=== PATIENT | female | born 1965 | race Caucasian/White ===

== ENCOUNTER 2017-05-25 17:34 | Observation (INO) ==
[2017-05-25] MEDS ORDERED: Ondansetron 4 MG/2 ML VIAL IVP ONE (18:28)
[2017-05-25] MEDS ORDERED: 0.9 % Sodium Chloride 1,000 ML IVC ONE (18:28)
[2017-05-25 18:44] LABS: Basophils % 0.4 %; Eosinophils # 0.1 K/mcL (0.0-0.6); Eosinophils % 1.3 %; Hematocrit 30.4 % (35.3-44.9); Hemoglobin 10.1 g/dL (11.5-15.4); Immature Granulocytes % 0.5 % (0-4); Lymphocytes # 2.3 K/mcL (0.6-4.6); Lymphocytes % 29.6 %; Mean Corpuscular HGB Conc 33.2 g/dL (31.6-35.5); Mean Corpuscular Hemoglobin 29.8 pg (28.0-33.3); Mean Corpuscular Volume 89.7 fL (83.0-100.0); Mean Platelet Volume 9.9 fL (9.4-12.4); Monocytes # 0.8 K/mcL (0.0-1.3); Monocytes % 9.8 %; Neutrophils # 4.6 K/mcL (1.6-8.9); Platelet Count 205 K/mcL (140-400); Red Blood Count 3.39 M/mcL (3.82-4.97); Red Cell Distribution Width 13.2 % (11.5-14.5); Segmented Neutrophils % 58.4 %
--- NOTE | 2017-05-25 18:47 | Emergency Department Note ---
Disposition Clinical Impression: Diverticulitis Disposition: Admitted As Inpatient Condition: Good Time of Disposition: 19:30 Abdominal Pain HPI - General Chief Complaint: ED Abdominal Pain Stated Complaint: sent to er by pcp Time Seen by Provider: 05/25/17 18:15 Source: patient Nursing Notes Reviewed: Yes Vital Signs Reviewed: Yes - History of Present Illness HPI Narrative: A week ago Miss Collado was diagnosed with diverticulitis. The pain that brought her in initially with this diagnosis is no better no worse. However she has had some diarrhea since the day after her visit. It is improving but she went about 6 times today and has abdominal cramps. She was placed on Cipro and Flagyl but estimates that she threw up about half of these doses. She saw her family doctor Sunday which is 2 days ago and those 2 medications were stopped and she was placed on Bactrim. She has a history of anaphylaxis with penicillin. The pain as described above is no better no worse but has persisted since that Bactrim was started. This medication has been giving her some stomach cramps as well. She last threw up about 4 hours ago. She is somewhat dizzy and lightheaded when she stands up. Urine frequency has decreased. She was directed to the emergency department by her family doctor. Pain Scale: 3 - Related Data Home Medications Medication Instructions Recorded Confirmed Cholecalciferol (Vitamin D3) 1,000 unit PO DAILY 12/29/14 05/25/17 [Vitamin D] Losartan Potassium [Cozaar] 75 mg PO DAILY 06/29/15 05/25/17 Aspirin Enteric Coated [Aspirin EC] 81 mg PO DAILY 03/28/17 05/25/17 Buspirone HCl [Buspar] 10 mg PO TID 03/28/17 05/25/17 Carvedilol 12.5 mg PO BID 03/28/17 05/25/17 Folic Acid 1 mg PO DAILY 03/28/17 05/25/17 Levothyroxine [Synthroid] 88 mcg PO 0630 03/28/17 05/25/17 Topiramate [Topamax] 50 mg PO QAM 03/28/17 05/25/17 Trazodone HCl 100 mg PO HS 03/28/17 05/25/17 Lansoprazole [Prevacid] 15 mg PO QAM 05/25/17 05/25/17 Previous Rx's Medication Instructions Recorded Rivaroxaban [Xarelto] 20 mg PO DAILY #30 tablet 03/29/17 Allergies Allergy/AdvReac Type Severity Reaction Status Date / Time lisinopril Allergy Anaphylaxis Verified 05/25/17 17:46 Penicillins Allergy Anaphylaxis Verified 05/25/17 17:46 Constitutional: Denies: fever, chills ENT ED: Denies: dysphagia Cardiovascular: Denies: chest pain Respiratory: Denies: dyspnea Gastrointestinal: Reports: abdominal pain, nausea, vomiting, diarrhea Genitourinary: Reports: as per HPI Musculoskeletal: Denies: myalgia Neurological: Denies: headache Endocrine: Reports: fatigue Abdominal Pain PMH - Past Medical History Medical history: Reports: cancer, GERD, hyperlipidemia, hypertension, kidney stones, thyroid disease Female Surgical History: Reports: breast surgery, , cholecystectomy, hysterectomy 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 Absent: scleral icterus - ENT ENT exam: normal oropharynx, mucous membranes moist - Neck Neck exam: Present: normal inspection. Absent: lymphadenopathy - Chest Chest inspection: Present: normal inspection, symmetric chest wall rise - Respiratory Respiratory exam: Present: normal lung sounds bilaterally. Absent: respiratory distress, wheezes, stridor - Cardiovascular Cardiovascular exam: Present: regular rate, normal rhythm, normal heart sounds - Abdominal Exam Abdominal exam: Present: soft, normal bowel sounds. Absent: distention, guarding, rebound, rigidity Abdominal tenderness: Present: LLQ, diffuse, mild, moderate (Moderate pain left lower quadrant otherwise diffusely mild pain to palpation) - Extremities Exam Extremities exam: Absent: normal capillary refill (3 seconds) - Neurological Exam Neurological exam: Present: alert - Psychiatric Psychiatric exam: Present: normal affect, normal mood - Skin Skin exam: Present: other (No tenting of the skin) Course Vital Signs Temperature 97.8 F 05/25/17 17:38 Pulse Rate 82 05/25/17 17:38 Respiratory Rate 16 05/25/17 17:38 Blood Pressure 128/83 05/25/17 17:38 O2 Sat by Pulse Oximetry 96 03/16/18 17:38 Temperature 98.3 F 05/25/17 20:01 Pulse Rate 82 05/25/17 17:38 Respiratory Rate 20 05/25/17 20:01 Blood Pressure 111/73 05/25/17 20:01 O2 Sat by Pulse Oximetry 96 05/25/17 17:38 Oxygen Delivery Oxygen Delivery Room Air Abdominal Pain - MDM Narrative Medical decision making narrative: Diverticulitis. Mild case. Clinically stable. Difficulty tolerating by mouth regimen this week now on a partial regimen of Bactrim secondary to significant penicillin reaction. She tolerated Invanz 1 g here in the emergency department along with IV Zofran and fluids. It would be prudent to hydrate her overnight if she is showing some signs of dehydration and increased creatinine. I spoke with the covering hospitalist here at [facility] and presented the case. He accepted admission. Ms. Collado is in agreement and is in stable condition awaiting transfer to the floor. We will hold any nonessential medications by mouth until her nausea and vomiting are well under control. - Medical Records Medical records reviewed: Yes I reviewed the patient's medical records. - Lab Data Lab results reviewed: Yes I reviewed the patient's lab results. Result diagrams: 05/25/17 18:41 05/25/17 18:41 Lab Results 05/25/17 05/25/17 05/25/17 Range/Units 18:41 18:41 18:41 WBC 7.9 (4.3-11.1) K/mcL RBC 3.39 L (3.82-4.97) M/mcL Hgb 10.1 L (11.5-15.4) g/dL Hct 30.4 L (35.3-44.9) % MCV 89.7 (83.0-100.0) fL MCH 29.8 (28.0-33.3) pg MCHC 33.2 (31.6-35.5) g/dL RDW 13.2 (11.5-14.5) % Plt Count 205 (140-400) K/mcL MPV 9.9 (9.4-12.4) fL Immature Gran % 0.5 (0-4) % Seg Neutrophils % 58.4 % Lymphocytes % 29.6 % Monocytes % 9.8 % Eosinophils % 1.3 % Basophils % 0.4 % Neutrophils # 4.6 (1.6-8.9) K/mcL Lymphocytes # 2.3 (0.6-4.6) K/mcL Monocytes # 0.8 (0.0-1.3) K/mcL Eosinophils # 0.1 (0.0-0.6) K/mcL Basophils # 0.0 (0.0-0.2) K/mcL Sodium 139 (136-145) mEq/L Potassium 4.1 (3.5-5.1) mEq/L Chloride 110 H (98-107) mEq/L Carbon Dioxide 22 L (23-29) mEq/L BUN 18 (6-20) mg/dL Creatinine 1.38 H (0.60-1.20) mg/dL Est GFR ( Amer) 49 L (> 60) Est GFR (Non-Af Amer) 40 L (> 60) BUN/Creatinine Ratio 13 (6-26) Glucose 90 (70-105) mg/dL Calculated Osmolality 289 (280-300) Calcium 8.6 (8.6-10.3) mg/dL Total Bilirubin 0.2 L (0.3-1.0) mg/dL AST 9 L (13-39) Units/L ALT 6 L (7-52) Units/L Alkaline Phosphatase 59 (34-104) Units/L Serum Total Protein 5.9 L (6.4-8.9) g/dL Albumin 3.1 L (3.5-5.7) g/dL Globulin 2.8 (2.4-3.5) g/dL Albumin/Globulin Ratio 1.1 (1.1-2.2) Amylase 32 (29-103) Units/L Lipase (11-82) Units/L Urine Color Yellow (Yellow) Urine Clarity Clear (Clear) Urine pH 6.5 (5.0-8.0) pH Units Ur Specific [place] 1.015 (1.010-1.025) Urine Protein Negative (Neg-Trace) mg/dL Urine Glucose (UA) Normal (Normal) mg/dL Urine Ketones Negative (Negative) mg/dL Urine Blood Trace-lysed H (Negative) Urine Nitrite Negative (Negative) Urine Bilirubin Negative (Negative) Urine Urobilinogen Normal (Normal) mg/dL Ur Leukocyte Esterase Negative (Negative) Urine Microscopic RBC 0-3 (0-3) per hpf Urine Microscopic WBC 0-3 (0-3) per hpf Ur Culture Indicated? NO (NO) 05/25/17 Range/Units 18:41 WBC (4.3-11.1) K/mcL RBC (3.82-4.97) M/mcL Hgb (11.5-15.4) g/dL Hct (35.3-44.9) % MCV (83.0-100.0) fL MCH (28.0-33.3) pg MCHC (31.6-35.5) g/dL RDW (11.5-14.5) % Plt Count (140-400) K/mcL MPV (9.4-12.4) fL Immature Gran % (0-4) % Seg Neutrophils % % Lymphocytes % % Monocytes % % Eosinophils % % Basophils % % Neutrophils # (1.6-8.9) K/mcL Lymphocytes # (0.6-4.6) K/mcL Monocytes # (0.0-1.3) K/mcL Eosinophils # (0.0-0.6) K/mcL Basophils # (0.0-0.2) K/mcL Sodium (136-145) mEq/L Potassium (3.5-5.1) mEq/L Chloride (98-107) mEq/L Carbon Dioxide (23-29) mEq/L BUN (6-20) mg/dL Creatinine (0.60-1.20) mg/dL Est GFR ( Amer) (> 60) Est GFR (Non-Af Amer) (> 60) BUN/Creatinine Ratio (6-26) Glucose (70-105) mg/dL Calculated Osmolality (280-300) Calcium (8.6-10.3) mg/dL Total Bilirubin (0.3-1.0) mg/dL AST (13-39) Units/L ALT (7-52) Units/L Alkaline Phosphatase (34-104) Units/L Serum Total Protein (6.4-8.9) g/dL Albumin (3.5-5.7) g/dL Globulin (2.4-3.5) g/dL Albumin/Globulin Ratio (1.1-2.2) Amylase (29-103) Units/L Lipase 33 (11-82) Units/L Urine Color (Yellow) Urine Clarity (Clear) Urine pH (5.0-8.0) pH Units Ur Specific [place] (1.010-1.025) Urine Protein (Neg-Trace) mg/dL Urine Glucose (UA) (Normal) mg/dL Urine Ketones (Negative) mg/dL Urine Blood (Negative) Urine Nitrite (Negative) Urine Bilirubin (Negative) Urine Urobilinogen (Normal) mg/dL Ur Leukocyte Esterase (Negative) Urine Microscopic RBC (0-3) per hpf Urine Microscopic WBC (0-3) per hpf Ur Culture Indicated? (NO) - Radiology Data Radiology results reviewed: Yes I reviewed the patient's radiology results.
[2017-05-25 18:57] LABS: Bilirubin,Urine Negative (Negative); Blood,Urine Trace-lysed (Negative); Clarity,Urine Clear (Clear); Color,Urine Yellow (Yellow); Glucose,Urine (UA) Normal (Normal); Ketones,Urine Negative (Negative); Leukocyte Esterase,Urine Negative (Negative); Nitrite,Urine Negative (Negative); PH,Urine 6.5 pH Units (5.0-8.0); Protein,Urine Negative (Neg-Trace); Specific Gravity,Urine 1.015 (1.010-1.025); Urobilinogen,Urine Normal (Normal)
[2017-05-25] MEDS ORDERED: Ertapenem 1,000 MG in 0.9 % Sodium Chloride Mini Bag 100 ML IVPB SCH (19:00)
[2017-05-25 19:06] LABS: RBC,Urine 0-3 per hpf (0-3); WBC,Urine 0-3 per hpf (0-3)
[2017-05-25 19:11] LABS: Albumin 3.1 g/dL (3.5-5.7); Albumin/Globulin Ratio 1.1 (1.1-2.2); Bilirubin,Total 0.2 mg/dL (0.3-1.0); Calcium 8.6 mg/dL (8.6-10.3); Globulin 2.8 g/dL (2.4-3.5); Potassium 4.1 mEq/L (3.5-5.1); Total Protein 5.9 g/dL (6.4-8.9)
[2017-05-25] MEDS ORDERED: Naloxone 0.4 MG/ML INJ IVP PRN (20:06)
[2017-05-25] MEDS ORDERED: traZODone 50 MG TABLET PO SCH (21:00)
[2017-05-25 21:20] LABS: INR 1.4; Prothrombin Time 15.1 Seconds (9.4-12.1)
[2017-05-25 21:22] LABS: Activated Partial Thrombo Time 30.5 Seconds (26.0-36.0)
[2017-05-25] MEDS ORDERED: Ondansetron 4 MG/2 ML VIAL IVP PRN (22:04)
[2017-05-25] MEDS: 0.9 % Sodium Chloride 1,000 ML IVC SCH (22:47)
[2017-05-25] MEDS: *HR* OxyCODONE Immed Rel 5 MG TABLET PO PRN (23:38)
[2017-05-26 05:51] LABS: Basophils % 0.4 %; Eosinophils # 0.2 K/mcL (0.0-0.6); Eosinophils % 2.2 %; Hematocrit 30.3 % (35.3-44.9); Hemoglobin 9.8 g/dL (11.5-15.4); Immature Granulocytes % 0.4 % (0-4); Lymphocytes # 2.6 K/mcL (0.6-4.6); Lymphocytes % 36.5 %; Mean Corpuscular HGB Conc 32.3 g/dL (31.6-35.5); Mean Corpuscular Hemoglobin 29.1 pg (28.0-33.3); Mean Corpuscular Volume 89.9 fL (83.0-100.0); Mean Platelet Volume 10.2 fL (9.4-12.4); Monocytes # 0.6 K/mcL (0.0-1.3); Monocytes % 7.7 %; Neutrophils # 3.8 K/mcL (1.6-8.9); Platelet Count 196 K/mcL (140-400); Red Blood Count 3.37 M/mcL (3.82-4.97); Segmented Neutrophils % 52.8 %
[2017-05-26 06:06] LABS: Calcium 8.4 mg/dL (8.6-10.3); Potassium 3.9 mEq/L (3.5-5.1)
[2017-05-26] MEDS: *HR* OxyCODONE Immed Rel 5 MG TABLET PO PRN (06:15)
[2017-05-26] MEDS: 0.9 % Sodium Chloride 1,000 ML IVC SCH (06:51)
[2017-05-26] MEDS ORDERED: *HR* Rivaroxaban 10 MG TABLET PO SCH (09:00)
[2017-05-26 12:17] VITALS: BP 138/64
--- NOTE | 2017-05-26 13:35 | Internal Med History&Physical ---
Date of Encounter: 05/26/17 Time of Encounter: 13:34 Assessment and Plan (1) Diverticulitis Status: Acute Clinically stable, to improved. She is able to keep food and fluids down without emesis. We will discontinue her IV antibiotics and fluids and advised that she be discharged to a soft diet, continue to use Zofran at home along with the Phenergan as needed. Advised her to follow-up with her primary care physician and to return, should she develop emesis to the point that she cannot keep fluids down. She will continue oral Bactrim, for now. She verbalizes understanding. (2) Pulmonary embolism Status: Suspected Recent and therefore will continue on 0 toe as per previous plans. Qualifiers: Pulmonary embolism type: other Chronicity: acute Acute cor pulmonale presence: without acute cor pulmonale Qualified Code(s): I26.99 - Other pulmonary embolism without acute cor pulmonale (3) DVT prophylaxis Status: Acute (4) DVT (deep venous thrombosis) Status: Acute Right lower extremity. Qualifiers: DVT location: lower extremity Affected thrombotic vein of extremity: femoral Chronicity: acute Laterality: left Qualified Code(s): I82.412 - Acute embolism and thrombosis of left femoral vein (5) Obstructive sleep apnea Status: Acute Uses CPAP at home regularly. (6) Essential hypertension Status: Acute Clinically controlled. (7) Nephrolithiasis Status: Acute On 6 occasions, per patient. (8) GERD (gastroesophageal reflux disease) Status: Acute We have advised her to continue her lansoprazole 15 mg by mouth daily Qualifiers: Esophagitis presence: esophagitis presence not specified Qualified Code(s) : K21.9 - Gastro-esophageal reflux disease without esophagitis (9) Breast cancer, right breast Status: Acute Without known evidence of recurrence and followed appropriately per history. Qualifiers: Breast location: unspecified site of breast Estrogen receptor status: unspecified Patient sex: female Qualified Code(s): C50.911 - Malignant neoplasm of unspecified site of right female breast (10) Hypothyroid Status: Chronic Will continue on supplementation and affirmed her plan to have evaluation to see about follow-up size of nodules. Her neck is obese and I was unable to palpate nodules, currently. This may be limited as she was examined in bed instead of upright in chair. Qualifiers: Hypothyroidism type: unspecified Qualified Code(s): E03.9 - Hypothyroidism , unspecified (11) Bipolar 1 disorder, manic, moderate Status: Acute As mentioned above, she separates this from anxiety disorder. Apparently well controlled with current medications, per patient. (12) Chronic kidney disease (CKD) stage G3a/A2, moderately decreased glomerular filtration rate (GFR) between 45-59 mL/min/1.73 square meter and albuminuria creatinine ratio between 30-299 mg/g Status: Acute Current labs look better than this. (13) Chronic kidney disease (CKD) stage G3a/A1, moderately decreased glomerular filtration rate (GFR) between 45-59 mL/min/1.73 square meter and albuminuria creatinine ratio less than 30 mg/g Status: Acute Internal Medicine - H&P: HPI Admitted From: Home Plans for Post Hospital Care: Home History of present illness: Ms. Collado is a 52 year old female who has presented to [facility] emergency department about a week ago with left flank and left lower quadrant pain. Because of her past history of kidney stones, she was felt to have a recurrent kidney stone tone and a CT scan failed to reveal same. She was found to have changes consistent with diverticulitis. She was discharged on Cipro and Flagyl and sent home. However, she continued to have abdominal pain, nausea and vomiting, diarrhea times per day with these medications. She saw her family physician, Dr. Shayy Calhoun, who discontinues those medications, gave her Phenergan and Bactrim, and told her to present to the ED, again, should her nausea and vomiting not resolved. Yesterday, she felt sweaty, had a fever, presented to the [facility] ED with persistent nausea and vomiting and diarrhea. For this reason, she was treated with IV hydration and given IV antibiotics and anti-emetics. Overnight, she improved and has had less nausea, no emesis, only 2 bowel movements which were somewhat loose but not diarrhea as before. She denies melena or hematochezia or hematemesis. There has been no dyspnea, sore throat and while she had some lightheadedness and dizziness with not being able to keep in fluids, this has improved. She has a history of right breast cancer in 2010 and underwent lumpectomy and radiation therapy. She has no known recurrence and had a recent negative mammogram. She is status post cholecystectomy, hysterectomy, incidental appendectomy, and bilateral carpal tunnel release. In March of this year, she had a right DVT with pulmonary embolus. She is treated for this with prophylactic cerebral toe. She knows of no complications , otherwise and has no recent bleeding issues. She has long-standing hypertension for which she takes multiple medications as noted including losartan 75 mg daily and Coreg 12.5 mg twice a day She has GERD for which she takes lansoprazole 15 mg daily. She has bipolar disorder for which she takes Topamax 50 mg daily. She also takes trazodone 100 mg at bedtime for anxiety which she separates from the bipolar disorder. She is hypothyroid on levothyroxine 88 g daily. He also has thyroid nodules and is due for a scan (? Ultrasound) in the near future. She is allergic to penicillin and aspirin. She has stage III chronic kidney disease attributed to lithium therapy. She wears glasses. Initial review of systems is otherwise negative. Past Med Surg Social Fam HX - Past Medical History Medical history: cancer, DVT, GERD, hyperlipidemia, hypertension, kidney stones , malignancy, migraine, pulmonary embolus, renal disease, thyroid disease Psychiatric history: anxiety, bipolar, depression - Past Surgical History Surgical History: breast surgery, cholecystectomy, hysterectomy, other - Social History Smoking Status: Former smoker Smokeless Tobacco Status: No Alcohol use: none Drug use: none - Family History Grandmother Hx Family Cardiac Disorders: Yes Hx Family Cancer: Yes Father Living Status: Hx Family Cancer: Yes Mother Living Status: Still Living Hx Family Cardiac Disorders: Yes Internal Medicine - H&P: Meds Cholecalciferol (Vitamin D3) [Vitamin D] 1,000 unit PO DAILY 12/29/14 [History] Losartan Potassium [Cozaar] 75 mg PO DAILY 06/29/15 [History] Aspirin Enteric Coated [Aspirin EC] 81 mg PO DAILY 03/28/17 [History] Buspirone HCl [Buspar] 10 mg PO TID 03/28/17 [History] Carvedilol 12.5 mg PO BID 03/28/17 [History] Folic Acid 1 mg PO DAILY 03/28/17 [History] Levothyroxine [Synthroid] 88 mcg PO 0630 03/28/17 [History] Topiramate [Topamax] 50 mg PO QAM 03/28/17 [History] Trazodone HCl 100 mg PO HS 03/28/17 [History] Rivaroxaban [Xarelto] 20 mg PO DAILY #30 tablet 03/29/17 [Rx] Lansoprazole [Prevacid] 15 mg PO QAM 05/25/17 [History] 3 Allergy/AdvReac Type Severity Reaction Status Date / Time lisinopril Allergy Anaphylaxis Verified 05/25/17 17:46 Penicillins Allergy Anaphylaxis Verified 05/25/17 17:46 All Systems PM: A 10-system review of systems was performed and is negative for pertinent findings except as documented above in the HPI. - Constitutional Vitals: Temp Pulse Resp BP Pulse Ox 98.1 F 100 14 138/64 96 05/26/17 12:00 05/26/17 12:00 05/26/17 12:00 05/26/17 12:00 05/26/17 08:03 Exam: Examinatioin: (Except as mentioned above): General: In no apparent distress, alert and oriented 3. Head: Atraumatic and normocephalic. Eyes: Extraocular muscles are intact, pupils equal round and reactive to light and accommodation. Sclerae anicteric. Ears: External ears are normal to inspection and hearing is grossly normal. Nose: Patent without lesion noted. Mouth: No intraoral lesions seen. Dentition is unremarkable. Neck: Supple with trachea midline. There is no thyromegaly or adenopathy and carotids are 2+ without bruit heard. Respiratory: No use of accessory muscles. Lungs are clear throughout. Normal airflow. Cardiovascular: Regular rate and rhythm without murmur appreciated. Abdomen: Bowel sounds are normal. She has no mass or hepatosplenomegaly but she has bilateral lower quadrant tenderness, worse at the left lower quadrant. This is mild in degree, subjectively, and not associated with guarding or rebound. There is no costovertebral angle tenderness, at either side. Obese and therefore difficult to palpate deeply. Extremities: No cyanosis clubbing or edema. Neurological: A and O 3. Cranial nerves II through XII are intact. No focal deficits and no abnormal movements or postures. Skin: Warm and non-diaphoretic with no lesions noted. Breasts, pelvic and rectal: Not examined. Internal Med - H&P Results - Labs CBC & Chem 7: 05/26/17 05:00 05/26/17 05:00 Labs: Short CBC 05/26/17 Range/Units 05:00 WBC 7.2 (4.3-11.1) K/mcL Hgb 9.8 L (11.5-15.4) g/dL Hct 30.3 L (35.3-44.9) % Plt Count 196 (140-400) K/mcL Neutrophils # 3.8 (1.6-8.9) K/mcL BMP 05/26/17 05:00 Sodium 139 Potassium 3.9 Chloride 112 H Carbon Dioxide 20 L BUN 15 Creatinine 1.19 Glucose 88 Calcium 8.4 L - VTE Reasons for not Prescribing Prophylaxis: Not indicated-Anticoagulated or INR therapeutic
--- NOTE | 2017-05-26 14:56 | Discharge Summary ---
Date of Encounter: 05/26/17 Time of Encounter: 14:54 - Discharge Diagnosis (1) Diverticulitis Priority: Primary Status: Acute (2) Pulmonary embolism Priority: Secondary Status: Suspected Qualifiers: Pulmonary embolism type: other Chronicity: acute Acute cor pulmonale presence: without acute cor pulmonale Qualified Code(s): I26.99 - Other pulmonary embolism without acute cor pulmonale (3) Breast cancer, right breast Priority: Secondary Status: Acute Comments: No known recurrence in recent mammogram negative. Qualifiers: Breast location: unspecified site of breast Estrogen receptor status: unspecified Patient sex: female Qualified Code(s): C50.911 - Malignant neoplasm of unspecified site of right female breast (4) Hypothyroid Priority: Secondary Status: Chronic Qualifiers: Hypothyroidism type: unspecified Qualified Code(s): E03.9 - Hypothyroidism , unspecified (5) Bipolar 1 disorder, manic, moderate Priority: Secondary Status: Acute (6) Obstructive sleep apnea Priority: Secondary Status: Acute (7) Essential hypertension Priority: Secondary Status: Acute (8) Nephrolithiasis Priority: Secondary Status: Acute Comments: By history (9) GERD (gastroesophageal reflux disease) Priority: Secondary Status: Acute Qualifiers: Esophagitis presence: esophagitis presence not specified Qualified Code(s) : K21.9 - Gastro-esophageal reflux disease without esophagitis Hospital course: Ms. Collado is a 52 year old female who presented with recurrent left lower quadrant and flank pain, felt to be diverticulitis. She had nausea and was unable to keep fluids down. For this reason, she was admitted on an observation status by the emergency department physician. She tolerated rehydration and improved overnight so that her nausea was minimal. She had great decrease in her diarrhea. She was provided with Zofran and instructed to use this in combination, as needed, with Phenergan as before. She is instructed to follow-up with her primary care physician, Dr. Sasha Calhoun.. Discharge discussed with: patient - Time Spent with Patient Total time spent providing and/or coordinating discharge services: Greater than 30 minutes - Discharge Medications Home Medications: Cholecalciferol (Vitamin D3) [Vitamin D] 1,000 unit PO DAILY 12/29/14 [History] Losartan Potassium [Cozaar] 75 mg PO DAILY 06/29/15 [History] Aspirin Enteric Coated [Aspirin EC] 81 mg PO DAILY 03/28/17 [History] Buspirone HCl [Buspar] 10 mg PO TID 03/28/17 [History] Carvedilol 12.5 mg PO BID 03/28/17 [History] Folic Acid 1 mg PO DAILY 03/28/17 [History] Levothyroxine [Synthroid] 88 mcg PO 0630 03/28/17 [History] Topiramate [Topamax] 50 mg PO QAM 03/28/17 [History] Trazodone HCl 100 mg PO HS 03/28/17 [History] Rivaroxaban [Xarelto] 20 mg PO DAILY #30 tablet 03/29/17 [Rx] Lansoprazole [Prevacid] 15 mg PO QAM 05/25/17 [History] Allergies/Adverse Reactions: 3 Allergy/AdvReac Type Severity Reaction Status Date / Time lisinopril Allergy Anaphylaxis Verified 05/25/17 17:46 Penicillins Allergy Anaphylaxis Verified 05/25/17 17:46 Date of admission: 05/25/17 19:34 Primary care physician: Sasha Calhoun CNP Discharging clinician: Keenan Garcia Anticipated date of discharge: 05/26/17 - Constitutional Vitals: Temp Pulse Resp BP Pulse Ox 98.1 F 100 14 138/64 96 05/26/17 12:00 05/26/17 12:00 05/26/17 12:00 05/26/17 12:00 05/26/17 08:03 Exam: See history and physical this date. - Patient Status Disposition: Home, Self-Care Condition: Fair Functional capacity at discharge: independent ambulation Overall status at discharge: patient is not back to baseline - Discharge Instructions Follow Up With: Sasha Calhoun CNP [Primary Care Provider] - - VTE Reasons for not Prescribing Prophylaxis: Not indicated-Anticoagulated or INR therapeutic
[2017-05-26] MEDS ORDERED: Ertapenem 1,000 MG in 0.9 % Sodium Chloride Mini Bag 100 ML IVPB SCH (18:00)
== END 2017-05-26 15:53 | disposition home or self-care (01) ==
LOC: EMEROOGRE 17:34 → INPGRE 17:34

== ENCOUNTER 2020-12-12 08:28 | Observation (INO) ==
[2020-12-12 08:56] LABS: Basophils % 0.5 %; Eosinophils # 0.1 K/mcL (0.0-0.6); Eosinophils % 1.7 %; Hematocrit 26.3 % (35.3-44.9); Hemoglobin 8.6 g/dL (11.5-15.4); Immature Granulocytes % 0.5 % (0-4); Lymphocytes # 0.6 K/mcL (0.6-4.6); Mean Corpuscular HGB Conc 32.7 g/dL (31.6-35.5); Mean Corpuscular Hemoglobin 33.3 pg (28.0-33.3); Mean Corpuscular Volume 101.9 fL (83.0-100.0); Monocytes # 0.2 K/mcL (0.0-1.3); Monocytes % 3.7 %; Platelet Count 134 K/mcL (140-400); Red Blood Count 2.58 M/mcL (3.82-4.97); Red Cell Distribution Width 12.8 % (11.5-14.5); Segmented Neutrophils % 83.6 %
[2020-12-12 09:01] LABS: Anisocytosis 1+ (Not Present); Platelet Estimate Normal (Normal); Poikilocytosis 1+ (Not Present)
[2020-12-12 09:02] LABS: INR 1.8; Prothrombin Time 19.8 Seconds (9.4-12.1)
[2020-12-12 09:05] LABS: Activated Partial Thrombo Time 36.5 Seconds (26.0-36.0)
[2020-12-12 09:14] LABS: Alanine Aminotransferase 6 Units/L (7-52); Albumin 3.2 g/dL (3.5-5.7); Albumin/Globulin Ratio 1.3 (1.1-2.2); Alkaline Phosphatase 55 Units/L (34-104); Aspartate Amino Transferase 10 Units/L (13-39); BUN/Creatinine Ratio 12 (6-26); Bilirubin,Total 0.4 mg/dL (0.3-1.0); Blood Urea Nitrogen 17 mg/dL (6-20); Calcium 7.8 mg/dL (8.6-10.3); Carbon Dioxide 23 mEq/L (23-29); Chloride 108 mEq/L (98-107); Ethanol < 10 mg/dL (Less than 10); Globulin 2.5 g/dL (2.4-3.5); Glucose 121 mg/dL (70-105); Magnesium 2.1 mg/dL (1.6-2.6); Osmolality,Calculated 291 (280-300); Potassium 3.5 mEq/L (3.5-5.1); Sodium 139 mEq/L (136-145); Total Protein 5.7 g/dL (6.4-8.9); eGFR For African Americans 47 (> 60); eGFR For Non-African Americans 39 (> 60)
[2020-12-12 09:26] LABS: Thyroid Stimulating Hormone 0.564 mcIU/mL (0.340-5.600)
[2020-12-12] MEDS ORDERED: 0.9 % Sodium Chloride 1,000 ML IVC ONE (10:01)
[2020-12-12 10:10] LABS: ABG Base Excess -3 mEq/L (-2 to 3); ABG HCO3 22 mEq/L (21-27); ABG Oxygen Saturation 97 % (95-98); ABG PCO2 42 mmHg (35-45); ABG PH 7.33 pH Units (7.32-7.45); ABG PO2 95 mmHg (85-104); ABG TCO2 24 mEq/L (20-26)
[2020-12-12 12:17] LABS: Bilirubin,Urine Negative (Negative); Blood,Urine Trace-intact (Negative); Clarity,Urine Clear (Clear); Color,Urine Yellow (Yellow); Glucose,Urine (UA) Normal (Normal); Ketones,Urine Negative (Negative); Leukocyte Esterase,Urine Negative (Negative); Nitrite,Urine Negative (Negative); PH,Urine 5.5 pH Units (5.0-8.0); Protein,Urine 30 mg/dL (Neg-Trace); Specific Gravity,Urine 1.025 (1.010-1.025); Urobilinogen,Urine Normal (Normal)
[2020-12-12 12:20] LABS: RBC,Urine 0-3 per hpf (0-3); WBC,Urine 0-3 per hpf (0-3)
[2020-12-12 12:46] LABS: Amphetamine Screen,Urine Negative ng/mL (Cutoff=1000); Barbiturate Screen,Urine Negative ng/mL (Cutoff=200); Benzodiazepines Screen,Urine Negative ng/mL (Cutoff=200); Cannabinoid Screen,Urine Negative ng/mL (Cutoff = 50); Cocaine Screen,Urine Negative ng/mL (Cutoff= 300); Opiate Screen,Urine Positive ng/mL (Cutoff=300); Phencyclidine Screen,Urine Negative ng/mL (Cutoff=25)
[2020-12-12] MEDS ORDERED: Ondansetron ODT 4 MG TAB.RAPDIS SL PRN (14:15)
[2020-12-12] MEDS ORDERED: Rizatriptan Benzoate [Rizatriptan] 10 MG Tab.Rapdis PO PRN (14:28)
[2020-12-12] MEDS ORDERED: *HR* OxyCODONE Immed Rel 15 MG TABLET PO PRN (15:04)
[2020-12-12] MEDS: Topiramate 25 MG TABLET PO SCH (21:07)
[2020-12-13] MEDS: Topiramate 25 MG TABLET PO SCH (07:52)
[2020-12-13] MEDS ORDERED: Tiotropium 10 INH DOSE IH SCH (09:00)
[2020-12-13] MEDS ORDERED: polyethylene glycoL 3350 17 GM POWD.PACK PO SCH (09:00)
[2020-12-13] MEDS ORDERED: *HR* Rivaroxaban 10 MG TABLET PO SCH (09:00)
[2020-12-13] MEDS ORDERED: Letrozole 2.5 MG TABLET PO SCH (09:00)
[2020-12-13] MEDS ORDERED: Aspirin Enteric Coated 81 MG Tablet PO SCH (09:00)
[2020-12-13] MEDS ORDERED: PALBOCICLIB 125 MG PO SCH (09:00)
[2020-12-13 11:31] LABS: Basophils % 0.4 %; Eosinophils # 0.1 K/mcL (0.0-0.6); Eosinophils % 2.8 %; Hematocrit 25.3 % (35.3-44.9); Hemoglobin 8.4 g/dL (11.5-15.4); Immature Granulocytes % 0.6 % (0-4); Lymphocytes # 0.6 K/mcL (0.6-4.6); Lymphocytes % 12.5 %; Mean Corpuscular HGB Conc 33.2 g/dL (31.6-35.5); Mean Corpuscular Hemoglobin 33.2 pg (28.0-33.3); Mean Platelet Volume 9.4 fL (9.4-12.4); Monocytes # 0.2 K/mcL (0.0-1.3); Monocytes % 4.2 %; Platelet Count 144 K/mcL (140-400); Red Blood Count 2.53 M/mcL (3.82-4.97); Red Cell Distribution Width 12.8 % (11.5-14.5); Segmented Neutrophils % 79.5 %
[2020-12-13 11:44] LABS: Anisocytosis 1+ (Not Present); Platelet Estimate Normal (Normal); Poikilocytosis 1+ (Not Present)
[2020-12-13 11:51] LABS: BUN/Creatinine Ratio 12 (6-26); Blood Urea Nitrogen 12 mg/dL (6-20); Calcium 7.9 mg/dL (8.6-10.3); Carbon Dioxide 20 mEq/L (23-29); Chloride 115 mEq/L (98-107); Glucose 95 mg/dL (70-105); Osmolality,Calculated 292 (280-300); Potassium 3.7 mEq/L (3.5-5.1); Sodium 141 mEq/L (136-145); eGFR For African Americans > 60 (> 60); eGFR For Non-African Americans 57 (> 60)
[2020-12-13 12:11] VITALS: BP 137/76; PULSE 79; RESP 16; TEMP 98.2; O2SAT 95
== END 2020-12-13 16:31 | disposition home or self-care (01) ==
LOC: EMEROOGRE 08:28 → INPGRE 08:28
PROVIDERS: ADMIT Family Medicine; ATTEND Family Medicine

== ENCOUNTER 2021-02-02 11:37 | Inpatient (IN) ==
[2021-02-02] MEDS ORDERED: *HR* FentaNYL (PF) 100 MCG/2 ML VIAL IVP ONE ×2 (12:09→15:00)
[2021-02-02 12:44] LABS: Basophils % 0.7 %; Eosinophils % 0.3 %; Hematocrit 25.4 % (35.3-44.9); Hemoglobin 8.5 g/dL (11.5-15.4); Immature Granulocytes % 0.8 % (0-4); Lymphocytes # 0.9 K/mcL (0.6-4.6); Lymphocytes % 15.6 %; Mean Corpuscular HGB Conc 33.5 g/dL (31.6-35.5); Mean Corpuscular Hemoglobin 32.7 pg (28.0-33.3); Mean Corpuscular Volume 97.7 fL (83.0-100.0); Mean Platelet Volume 9.4 fL (9.4-12.4); Monocytes # 0.1 K/mcL (0.0-1.3); Monocytes % 0.8 %; Neutrophils # 4.8 K/mcL (1.6-8.9); Platelet Count 171 K/mcL (140-400); Red Cell Distribution Width 14.5 % (11.5-14.5); Segmented Neutrophils % 81.8 %; White Blood Count 5.9 K/mcL (4.3-11.1)
[2021-02-02 12:52] LABS: INR 3.3; Prothrombin Time 36.4 Seconds (9.4-12.1)
[2021-02-02 12:55] LABS: Activated Partial Thrombo Time 36.3 Seconds (26.0-36.0)
[2021-02-02 12:57] LABS: VBG HCO3 24 mEq/L (21-27); VBG PCO2 27 mmHg (41-51); VBG PH 7.55 pH Units (7.32-7.42); VBG PO2 25 mmHg (25-50)
[2021-02-02 12:58] LABS: Alanine Aminotransferase 8 Units/L (7-52); Albumin 3.5 g/dL (3.5-5.7); Albumin/Globulin Ratio 1.1 (1.1-2.2); Alkaline Phosphatase 82 Units/L (34-104); Aspartate Amino Transferase 15 Units/L (13-39); BUN/Creatinine Ratio 13 (6-26); Bilirubin,Direct 0.2 mg/dL (0.0-0.2); Bilirubin,Indirect 0.5 mg/dL (0.0-1.0); Bilirubin,Total 0.7 mg/dL (0.3-1.0); Blood Urea Nitrogen 15 mg/dL (6-20); Calcium 8.2 mg/dL (8.6-10.3); Carbon Dioxide 25 mEq/L (23-29); Chloride 102 mEq/L (98-107); Globulin 3.1 g/dL (2.4-3.5); Glucose 96 mg/dL (70-105); Osmolality,Calculated 289 (280-300); Potassium 2.7 mEq/L (3.5-5.1); Sodium 139 mEq/L (136-145); Total Protein 6.6 g/dL (6.4-8.9); eGFR For African Americans 58 (> 60); eGFR For Non-African Americans 48 (> 60)
[2021-02-02] MEDS ORDERED: Potassium Effervescent 25 MEQ TABLET.EFF PO ONE (12:59)
[2021-02-02] MEDS ORDERED: Isovue-370 500 ML BOTTLE IVP ONE (13:00)
[2021-02-02] MEDS ORDERED: 0.9 % Sodium Chloride 1,000 ML IVC ONE (13:00)
[2021-02-02 13:01] LABS: Troponin I < 0.03 ng/mL (< 0.04)
[2021-02-02] MEDS ORDERED: levoFLOXacin 750 MG/150 ML 750 MG/150 ML BAG IVPB ONE (15:55)
[2021-02-02 16:39] LABS: VBG HCO3 23 mEq/L (21-27); VBG PCO2 31 mmHg (41-51); VBG PH 7.48 pH Units (7.32-7.42); VBG PO2 32 mmHg (25-50)
[2021-02-02] MEDS ORDERED: Naloxone 0.4 MG/ML INJ IVP PRN (18:20)
[2021-02-02] MEDS ORDERED: *HR* HYDROcodone/Acet 5/325 mg TABLET PO PRN (18:20)
[2021-02-02] MEDS ORDERED: Furosemide 40 MG TABLET PO PRN (18:23)
[2021-02-02] MEDS: Ipratropium/Albuterol Neb 3 ML IH SCH (20:00)
[2021-02-02] MEDS ORDERED: Rizatriptan Benzoate [Rizatriptan] 10 MG PO PRN (22:00)
[2021-02-02] MEDS: levETIRAcetam 250 MG TABLET PO SCH (22:42)
[2021-02-02] MEDS: lamoTRIgine 100 MG TABLET PO SCH (22:43)
[2021-02-02] MEDS: Topiramate 25 MG TABLET PO SCH (22:43)
[2021-02-02] MEDS: Vitamin E 200 UNIT (90MG) CAPSULE PO SCH (22:43)
[2021-02-02] MEDS: *HR* OxyCODONE Immed Rel 15 MG TABLET PO SCH (22:44)
[2021-02-02] MEDS: traZODone 50 MG TABLET PO SCH (22:44)
[2021-02-02 23:24] LABS: Bilirubin,Urine Negative (Negative); Blood,Urine Negative (Negative); Clarity,Urine Clear (Clear); Color,Urine Yellow (Yellow); Glucose,Urine (UA) Normal (Normal); Ketones,Urine Negative (Negative); Leukocyte Esterase,Urine Negative (Negative); Nitrite,Urine Negative (Negative); Protein,Urine Negative (Neg-Trace); Urobilinogen,Urine Normal (Normal)
[2021-02-03] MEDS: Ipratropium/Albuterol Neb 3 ML IH SCH ×7 (00:20→23:52)
[2021-02-03 01:45] LABS: Adenovirus Not Detected (Not Detect); Bordetella Pertussis Not Detected (Not Detect); Chlamydophila pneumoniae Not Detected (Not Detect); Coronavirus 229E Not Detected (Not Detect); Coronavirus HKU1 Not Detected (Not Detect); Coronavirus NL63 Not Detected (Not Detect); Coronavirus OC43 DETECTED (Not Detect); Human Metapneumovirus DETECTED (Not Detect); Human Rhinovirus/Enterovirus Not Detected (Not Detect); Influenza A Subtype 2009 H1 Not Detected (Not Detect); Influenza B Not Detected (Not Detect); Mycoplasma pneumoniae Not Detected (Not Detect); Parainfluenza Virus 1 Not Detected (Not Detect); Parainfluenza Virus 2 Not Detected (Not Detect); Parainfluenza Virus 3 Not Detected (Not Detect); Parainfluenza Virus 4 Not Detected (Not Detect); Respiratory Syncytial Virus Not Detected (Not Detect); SARS-CoV-2 Not Detected (Not Detect)
[2021-02-03] MEDS: *HR* OxyCODONE Immed Rel 15 MG TABLET PO SCH ×4 (06:00→21:53)
[2021-02-03 06:04] LABS: Hematocrit 22.5 % (35.3-44.9); Hemoglobin 7.2 g/dL (11.5-15.4); Mean Corpuscular Hemoglobin 32.4 pg (28.0-33.3); Mean Corpuscular Volume 101.4 fL (83.0-100.0); Mean Platelet Volume 9.4 fL (9.4-12.4); Platelet Count 120 K/mcL (140-400); Red Blood Count 2.22 M/mcL (3.82-4.97); Red Cell Distribution Width 14.7 % (11.5-14.5); White Blood Count 3.7 K/mcL (4.3-11.1)
[2021-02-03 06:43] LABS: Alanine Aminotransferase 6 Units/L (7-52); Albumin/Globulin Ratio 1.3 (1.1-2.2); Alkaline Phosphatase 73 Units/L (34-104); Aspartate Amino Transferase 14 Units/L (13-39); BUN/Creatinine Ratio 10 (6-26); Bilirubin,Total 0.5 mg/dL (0.3-1.0); Blood Urea Nitrogen 11 mg/dL (6-20); Calcium 7.5 mg/dL (8.6-10.3); Carbon Dioxide 26 mEq/L (23-29); Chloride 107 mEq/L (98-107); Globulin 2.4 g/dL (2.4-3.5); Glucose 97 mg/dL (70-105); Magnesium 1.9 mg/dL (1.6-2.6); Osmolality,Calculated 283 (280-300); Phosphorous 2.3 mg/dL (2.7-4.5); Potassium 3.4 mEq/L (3.5-5.1); Sodium 137 mEq/L (136-145); Total Protein 5.4 g/dL (6.4-8.9); eGFR For African Americans > 60 (> 60); eGFR For Non-African Americans 52 (> 60)
[2021-02-03] MEDS: Topiramate 25 MG TABLET PO SCH ×2 (08:12→21:54)
[2021-02-03] MEDS: Acetaminophen 325 MG TABLET PO PRN (08:12)
[2021-02-03] MEDS: Vitamin E 200 UNIT (90MG) CAPSULE PO SCH ×2 (08:12→21:53)
[2021-02-03] MEDS: levETIRAcetam 250 MG TABLET PO SCH ×2 (08:12→21:54)
[2021-02-03] MEDS: Famotidine 20 MG TABLET PO SCH ×2 (08:13→15:49)
[2021-02-03] MEDS: polyethylene glycoL 3350 17 GM POWD.PACK PO SCH (08:14)
[2021-02-03] MEDS: PALBOCICLIB 125 MG PO SCH (08:15)
[2021-02-03] MEDS: Loratadine 10 MG TABLET PO SCH (08:22)
[2021-02-03] MEDS: Aspirin Enteric Coated 81 MG Tablet PO SCH (08:22)
[2021-02-03] MEDS: Cholecalciferol (D-3) 1,000 UNIT (25MCG) TABLET PO SCH (08:22)
[2021-02-03] MEDS: lamoTRIgine 100 MG TABLET PO SCH ×2 (08:22→21:54)
[2021-02-03] MEDS: *HR* Rivaroxaban 10 MG TABLET PO SCH (08:22)
[2021-02-03] MEDS: Letrozole 2.5 MG TABLET PO SCH (08:22)
[2021-02-03] MEDS: SUMAtriptan succinate 25 MG TABLET PO SCH (08:22)
[2021-02-03] MEDS ORDERED: Tiotropium 10 INH DOSE IH SCH (09:00)
[2021-02-03] MEDS: Benzonatate 100 MG CAPSULE PO PRN (15:49)
[2021-02-03] MEDS: levoFLOXacin 750 MG/150 ML 750 MG/150 ML BAG IVPB SCH (15:49)
[2021-02-03] MEDS: Ondansetron 4 MG/2 ML VIAL IVP PRN (15:57)
[2021-02-03] MEDS: traZODone 50 MG TABLET PO SCH (21:54)
[2021-02-04] MEDS: Ipratropium/Albuterol Neb 3 ML IH SCH ×5 (04:17→20:19)
[2021-02-04] MEDS: *HR* OxyCODONE Immed Rel 15 MG TABLET PO SCH ×3 (05:23→16:28)
[2021-02-04] MEDS: Vitamin E 200 UNIT (90MG) CAPSULE PO SCH ×2 (07:32→20:47)
[2021-02-04] MEDS: Acetaminophen 325 MG TABLET PO PRN (07:32)
[2021-02-04] MEDS: Cholecalciferol (D-3) 1,000 UNIT (25MCG) TABLET PO SCH (07:33)
[2021-02-04] MEDS: Letrozole 2.5 MG TABLET PO SCH (07:33)
[2021-02-04] MEDS: Topiramate 25 MG TABLET PO SCH ×2 (07:33→20:48)
[2021-02-04] MEDS: Benzonatate 100 MG CAPSULE PO PRN (07:33)
[2021-02-04] MEDS: Famotidine 20 MG TABLET PO SCH ×2 (07:34→16:28)
[2021-02-04] MEDS: levETIRAcetam 250 MG TABLET PO SCH ×2 (07:34→20:47)
[2021-02-04] MEDS: SUMAtriptan succinate 25 MG TABLET PO SCH (07:34)
[2021-02-04] MEDS: Aspirin Enteric Coated 81 MG Tablet PO SCH (07:34)
[2021-02-04] MEDS: Loratadine 10 MG TABLET PO SCH (07:34)
[2021-02-04] MEDS: *HR* Rivaroxaban 10 MG TABLET PO SCH (07:34)
[2021-02-04] MEDS: lamoTRIgine 100 MG TABLET PO SCH ×2 (07:35→20:49)
[2021-02-04] MEDS: PALBOCICLIB 125 MG PO SCH (07:37)
[2021-02-04] MEDS: polyethylene glycoL 3350 17 GM POWD.PACK PO SCH (07:37)
[2021-02-04 08:26] LABS: Hematocrit 24.2 % (35.3-44.9); Hemoglobin 7.6 g/dL (11.5-15.4); Mean Corpuscular HGB Conc 31.4 g/dL (31.6-35.5); Mean Corpuscular Hemoglobin 32.6 pg (28.0-33.3); Mean Corpuscular Volume 103.9 fL (83.0-100.0); Platelet Count 101 K/mcL (140-400); Red Blood Count 2.33 M/mcL (3.82-4.97); White Blood Count 2.6 K/mcL (4.3-11.1)
[2021-02-04 08:44] LABS: Calcium 8.1 mg/dL (8.6-10.3); Magnesium 1.9 mg/dL (1.6-2.6); Potassium 3.9 mEq/L (3.5-5.1)
[2021-02-04] MEDS: levoFLOXacin 750 MG/150 ML 750 MG/150 ML BAG IVPB SCH (16:28)
[2021-02-04] MEDS: Benzonatate 100 MG CAPSULE PO SCH (20:47)
[2021-02-04] MEDS: traZODone 50 MG TABLET PO SCH (20:48)
[2021-02-05] MEDS: *HR* OxyCODONE Immed Rel 15 MG TABLET PO SCH ×5 (00:08→20:40)
[2021-02-05] MEDS: Ipratropium/Albuterol Neb 3 ML IH SCH ×7 (00:12→23:47)
[2021-02-05] MEDS: Topiramate 25 MG TABLET PO SCH ×2 (07:45→20:41)
[2021-02-05] MEDS: Vitamin E 200 UNIT (90MG) CAPSULE PO SCH ×2 (07:45→20:40)
[2021-02-05] MEDS: levETIRAcetam 250 MG TABLET PO SCH ×2 (07:45→20:41)
[2021-02-05] MEDS: *HR* Rivaroxaban 10 MG TABLET PO SCH (07:45)
[2021-02-05] MEDS: Benzonatate 100 MG CAPSULE PO SCH ×3 (07:45→20:40)
[2021-02-05] MEDS: Cholecalciferol (D-3) 1,000 UNIT (25MCG) TABLET PO SCH (07:46)
[2021-02-05] MEDS: Loratadine 10 MG TABLET PO SCH (07:46)
[2021-02-05] MEDS: Famotidine 20 MG TABLET PO SCH ×2 (07:46→17:01)
[2021-02-05] MEDS: SUMAtriptan succinate 25 MG TABLET PO SCH (07:46)
[2021-02-05] MEDS: polyethylene glycoL 3350 17 GM POWD.PACK PO SCH (07:47)
[2021-02-05] MEDS: Letrozole 2.5 MG TABLET PO SCH (07:47)
[2021-02-05] MEDS: Aspirin Enteric Coated 81 MG Tablet PO SCH (07:47)
[2021-02-05] MEDS: lamoTRIgine 100 MG TABLET PO SCH ×2 (07:47→20:41)
[2021-02-05] MEDS: PALBOCICLIB 125 MG PO SCH (07:47)
[2021-02-05] MEDS: levoFLOXacin 750 MG/150 ML 750 MG/150 ML BAG IVPB SCH (17:00)
[2021-02-05] MEDS: traZODone 50 MG TABLET PO SCH (20:41)
[2021-02-06] MEDS: Ipratropium/Albuterol Neb 3 ML IH SCH ×4 (04:19→20:29)
[2021-02-06] MEDS: Famotidine 20 MG TABLET PO SCH ×2 (05:31→15:41)
[2021-02-06] MEDS: *HR* OxyCODONE Immed Rel 15 MG TABLET PO SCH ×4 (05:31→22:10)
[2021-02-06] MEDS: Aspirin Enteric Coated 81 MG Tablet PO SCH (08:45)
[2021-02-06] MEDS: lamoTRIgine 100 MG TABLET PO SCH ×2 (08:45→22:08)
[2021-02-06] MEDS: Letrozole 2.5 MG TABLET PO SCH (08:46)
[2021-02-06] MEDS: levETIRAcetam 250 MG TABLET PO SCH ×2 (08:46→22:09)
[2021-02-06] MEDS: SUMAtriptan succinate 25 MG TABLET PO SCH (08:46)
[2021-02-06] MEDS: Topiramate 25 MG TABLET PO SCH ×2 (08:46→22:09)
[2021-02-06] MEDS: Cholecalciferol (D-3) 1,000 UNIT (25MCG) TABLET PO SCH (08:46)
[2021-02-06] MEDS: PALBOCICLIB 125 MG PO SCH (08:47)
[2021-02-06] MEDS: Loratadine 10 MG TABLET PO SCH (08:47)
[2021-02-06] MEDS: polyethylene glycoL 3350 17 GM POWD.PACK PO SCH (08:47)
[2021-02-06] MEDS: Benzonatate 100 MG CAPSULE PO SCH ×3 (08:47→22:46)
[2021-02-06] MEDS: *HR* Rivaroxaban 10 MG TABLET PO SCH (08:47)
[2021-02-06] MEDS: Vitamin E 200 UNIT (90MG) CAPSULE PO SCH ×2 (08:48→22:15)
[2021-02-06] MEDS ORDERED: predniSONE 20 MG TABLET PO SCH (09:00)
[2021-02-06] MEDS: levoFLOXacin 750 MG/150 ML 750 MG/150 ML BAG IVPB SCH (15:39)
[2021-02-06] MEDS: Acetaminophen 325 MG TABLET PO PRN (15:40)
[2021-02-06] MEDS: GuaiFENesin/Codeine Oral Soln 5 ML UDC PO PRN ×2 (15:40→22:17)
[2021-02-06] MEDS: traZODone 50 MG TABLET PO SCH (22:09)
[2021-02-07] MEDS: Ondansetron 4 MG/2 ML VIAL IVP PRN (02:48)
[2021-02-07] MEDS: GuaiFENesin/Codeine Oral Soln 5 ML UDC PO PRN (04:00)
[2021-02-07] MEDS: *HR* OxyCODONE Immed Rel 15 MG TABLET PO SCH ×4 (04:00→22:00)
[2021-02-07] MEDS: Ipratropium/Albuterol Neb 3 ML IH SCH ×3 (06:23→21:17)
[2021-02-07] MEDS: Vitamin E 200 UNIT (90MG) CAPSULE PO SCH ×2 (08:54→21:45)
[2021-02-07] MEDS: Loratadine 10 MG TABLET PO SCH (08:54)
[2021-02-07] MEDS: levETIRAcetam 250 MG TABLET PO SCH ×2 (08:54→21:43)
[2021-02-07] MEDS: Famotidine 20 MG TABLET PO SCH ×2 (08:55→17:00)
[2021-02-07] MEDS: SUMAtriptan succinate 25 MG TABLET PO SCH (08:55)
[2021-02-07] MEDS: Topiramate 25 MG TABLET PO SCH ×2 (08:55→21:44)
[2021-02-07] MEDS: PALBOCICLIB 125 MG PO SCH (08:56)
[2021-02-07] MEDS: polyethylene glycoL 3350 17 GM POWD.PACK PO SCH (08:56)
[2021-02-07] MEDS: Cholecalciferol (D-3) 1,000 UNIT (25MCG) TABLET PO SCH (08:56)
[2021-02-07] MEDS: Aspirin Enteric Coated 81 MG Tablet PO SCH (08:56)
[2021-02-07] MEDS: *HR* Rivaroxaban 10 MG TABLET PO SCH (08:56)
[2021-02-07] MEDS: lamoTRIgine 100 MG TABLET PO SCH ×2 (08:56→21:44)
[2021-02-07] MEDS: Letrozole 2.5 MG TABLET PO SCH (08:56)
[2021-02-07 10:28] LABS: Basophils % 0.5 %; Eosinophils # 0.1 K/mcL (0.0-0.6); Eosinophils % 1.4 %; Hematocrit 24.1 % (35.3-44.9); Hemoglobin 7.6 g/dL (11.5-15.4); Immature Granulocytes % 0.5 % (0-4); Lymphocytes # 0.6 K/mcL (0.6-4.6); Lymphocytes % 17.4 %; Mean Corpuscular HGB Conc 31.5 g/dL (31.6-35.5); Mean Corpuscular Volume 104.8 fL (83.0-100.0); Mean Platelet Volume 9.5 fL (9.4-12.4); Monocytes # 0.2 K/mcL (0.0-1.3); Monocytes % 6.5 %; Neutrophils # 2.7 K/mcL (1.6-8.9); Red Cell Distribution Width 15.3 % (11.5-14.5); Segmented Neutrophils % 73.7 %; White Blood Count 3.7 K/mcL (4.3-11.1)
[2021-02-07 10:29] LABS: Platelet Count 70 K/mcL (140-400)
[2021-02-07 10:43] LABS: Albumin 3.3 g/dL (3.5-5.7); Albumin/Globulin Ratio 1.1 (1.1-2.2); Bilirubin,Total 0.3 mg/dL (0.3-1.0); Globulin 2.9 g/dL (2.4-3.5); Potassium 4.3 mEq/L (3.5-5.1); Total Protein 6.2 g/dL (6.4-8.9)
[2021-02-07] MEDS: levoFLOXacin 750 MG/150 ML 750 MG/150 ML BAG IVPB SCH (16:59)
[2021-02-07] MEDS ORDERED: *HR* OxyCODONE ER (12 HR) 10 MG TABLET PO SCH (18:00)
[2021-02-07] MEDS: traZODone 50 MG TABLET PO SCH (21:44)
[2021-02-08] MEDS: *HR* OxyCODONE Immed Rel 15 MG TABLET PO SCH ×4 (04:49→21:14)
[2021-02-08] MEDS: Famotidine 20 MG TABLET PO SCH ×2 (04:49→17:34)
[2021-02-08] MEDS: Ipratropium/Albuterol Neb 3 ML IH SCH ×3 (08:20→20:48)
[2021-02-08] MEDS: Topiramate 25 MG TABLET PO SCH ×2 (08:28→21:08)
[2021-02-08] MEDS: Cholecalciferol (D-3) 1,000 UNIT (25MCG) TABLET PO SCH (08:28)
[2021-02-08] MEDS: Vitamin E 200 UNIT (90MG) CAPSULE PO SCH ×2 (08:28→21:07)
[2021-02-08] MEDS: Acetaminophen 325 MG TABLET PO PRN (08:28)
[2021-02-08] MEDS: SUMAtriptan succinate 25 MG TABLET PO SCH (08:29)
[2021-02-08] MEDS: Letrozole 2.5 MG TABLET PO SCH (08:29)
[2021-02-08] MEDS: lamoTRIgine 100 MG TABLET PO SCH ×2 (08:29→21:08)
[2021-02-08] MEDS: *HR* Rivaroxaban 10 MG TABLET PO SCH (08:29)
[2021-02-08] MEDS: Loratadine 10 MG TABLET PO SCH (08:29)
[2021-02-08] MEDS: levETIRAcetam 250 MG TABLET PO SCH ×2 (08:29→21:08)
[2021-02-08] MEDS: Aspirin Enteric Coated 81 MG Tablet PO SCH (08:30)
[2021-02-08] MEDS: polyethylene glycoL 3350 17 GM POWD.PACK PO SCH (08:30)
[2021-02-08] MEDS: PALBOCICLIB 125 MG PO SCH (08:30)
[2021-02-08 11:59] LABS: Bilirubin,Urine Negative (Negative); Blood,Urine Negative (Negative); Clarity,Urine Clear (Clear); Color,Urine Yellow (Yellow); Glucose,Urine (UA) Normal (Normal); Ketones,Urine Negative (Negative); Leukocyte Esterase,Urine Negative (Negative); Nitrite,Urine Negative (Negative); PH,Urine 5.5 pH Units (5.0-8.0); Protein,Urine Negative (Neg-Trace); Urobilinogen,Urine Normal (Normal)
[2021-02-08] MEDS: levoFLOXacin 750 MG/150 ML 750 MG/150 ML BAG IVPB SCH (17:36)
[2021-02-08] MEDS: traZODone 50 MG TABLET PO SCH (21:08)
[2021-02-09] MEDS: *HR* OxyCODONE Immed Rel 15 MG TABLET PO SCH ×3 (05:36→17:00)
[2021-02-09 07:57] VITALS: O2SAT 97
[2021-02-09] MEDS: polyethylene glycoL 3350 17 GM POWD.PACK PO SCH (08:39)
[2021-02-09] MEDS: Loratadine 10 MG TABLET PO SCH (08:40)
[2021-02-09] MEDS: Famotidine 20 MG TABLET PO SCH ×2 (08:40→17:00)
[2021-02-09] MEDS: levETIRAcetam 250 MG TABLET PO SCH (08:40)
[2021-02-09] MEDS: lamoTRIgine 100 MG TABLET PO SCH (08:40)
[2021-02-09] MEDS: Aspirin Enteric Coated 81 MG Tablet PO SCH (08:40)
[2021-02-09] MEDS: Letrozole 2.5 MG TABLET PO SCH (08:40)
[2021-02-09] MEDS: PALBOCICLIB 125 MG PO SCH (08:41)
[2021-02-09] MEDS: Cholecalciferol (D-3) 1,000 UNIT (25MCG) TABLET PO SCH (08:41)
[2021-02-09] MEDS: Vitamin E 200 UNIT (90MG) CAPSULE PO SCH (08:41)
[2021-02-09] MEDS: *HR* Rivaroxaban 10 MG TABLET PO SCH (08:41)
[2021-02-09] MEDS: SUMAtriptan succinate 25 MG TABLET PO SCH (08:41)
[2021-02-09] MEDS: Topiramate 25 MG TABLET PO SCH (08:41)
[2021-02-09] MEDS ORDERED: levoFLOXacin 500 MG TABLET PO SCH (09:00)
[2021-02-09] MEDS: Ipratropium/Albuterol Neb 3 ML IH SCH ×2 (09:38→16:21)
[2021-02-09 11:52] VITALS: BP 108/66; PULSE 92; RESP 18; TEMP 98.1
== END 2021-02-09 17:22 | DRG 139 ==
LOC: EMEROOGRE 11:37 → INTOOBSV 17:32 → INPGRE 17:32
PROVIDERS: ADMIT Family Medicine; ATTEND Family Medicine

== ENCOUNTER 2021-06-02 12:01 | Inpatient (IN) ==
[2021-06-02] MEDS ORDERED: 0.9 % Sodium Chloride 1,000 ML IV ONE (12:18)
[2021-06-02 12:42] LABS: Eosinophils # 0.2 K/mcL (0.0-0.6); Eosinophils % 4.9 %; Hematocrit 27.1 % (35.3-44.9); Hemoglobin 8.6 g/dL (11.5-15.4); Immature Granulocytes % 0.3 % (0-4); Lymphocytes # 0.5 K/mcL (0.6-4.6); Lymphocytes % 16.1 %; Mean Corpuscular HGB Conc 31.7 g/dL (31.6-35.5); Mean Corpuscular Hemoglobin 34.5 pg (28.0-33.3); Mean Corpuscular Volume 108.8 fL (83.0-100.0); Mean Platelet Volume 9.2 fL (9.4-12.4); Monocytes # 0.2 K/mcL (0.0-1.3); Monocytes % 6.2 %; Neutrophils # 2.2 K/mcL (1.6-8.9); Platelet Count 128 K/mcL (140-400); Red Blood Count 2.49 M/mcL (3.82-4.97); Red Cell Distribution Width 16.4 % (11.5-14.5); Segmented Neutrophils % 71.5 %; White Blood Count 3.1 K/mcL (4.3-11.1)
[2021-06-02 12:50] LABS: INR 2.7; Prothrombin Time 30.1 Seconds (9.4-12.1)
[2021-06-02 12:52] LABS: Activated Partial Thrombo Time 42.6 Seconds (26.0-36.0)
[2021-06-02 13:01] LABS: Alanine Aminotransferase 9 Units/L (7-52); Albumin 3.4 g/dL (3.5-5.7); Albumin/Globulin Ratio 1.1 (1.1-2.2); Alkaline Phosphatase 71 Units/L (34-104); Aspartate Amino Transferase 11 Units/L (13-39); BUN/Creatinine Ratio 14 (6-26); Bilirubin,Total 0.4 mg/dL (0.3-1.0); Blood Urea Nitrogen 21 mg/dL (6-20); Calcium 8.6 mg/dL (8.6-10.3); Carbon Dioxide 25 mEq/L (23-29); Chloride 106 mEq/L (98-107); Globulin 3.1 g/dL (2.4-3.5); Glucose 104 mg/dL (70-105); Osmolality,Calculated 287 (280-300); Sodium 137 mEq/L (136-145); Total Protein 6.5 g/dL (6.4-8.9); Troponin I < 0.03 ng/mL (< 0.04); eGFR For African Americans 45 (> 60); eGFR For Non-African Americans 37 (> 60)
[2021-06-02] MEDS ORDERED: levoFLOXacin 750 MG/150 ML 750 MG/150 ML BAG IVPB STA (13:44)
[2021-06-02] MEDS ORDERED: Naloxone 0.4 MG/ML INJ IVP PRN (13:57)
[2021-06-02] MEDS ORDERED: Ondansetron 4 MG/2 ML VIAL IVP PRN (13:57)
[2021-06-02] MEDS ORDERED: Acetaminophen 325 MG TABLET PO PRN (13:57)
[2021-06-02 14:56] LABS: ABG Base Excess -5 mEq/L (-2 to 3); ABG HCO3 21 mEq/L (21-27); ABG Oxygen Saturation 90 % (95-98); ABG PCO2 43 mmHg (35-45); ABG PO2 65 mmHg (85-104); ABG TCO2 22 mEq/L (20-26)
[2021-06-02] MEDS ORDERED: *HR* OxyCODONE Immed Rel 5 MG TABLET PO PRN (17:34)
[2021-06-02] MEDS: 0.9 % Sodium Chloride 1,000 ML IVC SCH (18:16)
[2021-06-02] MEDS: *HR* Rivaroxaban 10 MG TABLET PO SCH (18:20)
[2021-06-02] MEDS: Vitamin E 200 UNIT (90MG) CAPSULE PO SCH (21:30)
[2021-06-02] MEDS: levETIRAcetam 250 MG TABLET PO SCH (21:30)
[2021-06-02] MEDS: Topiramate 25 MG TABLET PO SCH (21:31)
[2021-06-02] MEDS: Famotidine 20 MG TABLET PO SCH (21:31)
[2021-06-02] MEDS: lamoTRIgine 100 MG TABLET PO SCH (21:31)
[2021-06-02] MEDS: traZODone 50 MG TABLET PO SCH (21:32)
[2021-06-03] MEDS: 0.9 % Sodium Chloride 1,000 ML IVC SCH (01:51)
[2021-06-03] MEDS: *HR* OxyCODONE ER (12 HR) 10 MG TABLET PO SCH ×3 (01:57→16:34)
[2021-06-03 06:53] LABS: Hematocrit 22.2 % (35.3-44.9); Hemoglobin 7.2 g/dL (11.5-15.4); Mean Corpuscular HGB Conc 32.4 g/dL (31.6-35.5); Mean Corpuscular Hemoglobin 34.8 pg (28.0-33.3); Mean Corpuscular Volume 107.2 fL (83.0-100.0); Mean Platelet Volume 9.1 fL (9.4-12.4); Platelet Count 105 K/mcL (140-400); Red Blood Count 2.07 M/mcL (3.82-4.97); Red Cell Distribution Width 16.2 % (11.5-14.5); White Blood Count 5.4 K/mcL (4.3-11.1)
[2021-06-03] MEDS: Topiramate 25 MG TABLET PO SCH ×2 (08:36→20:59)
[2021-06-03] MEDS: Aspirin Enteric Coated 81 MG Tablet PO SCH (08:36)
[2021-06-03] MEDS: Vitamin E 200 UNIT (90MG) CAPSULE PO SCH ×2 (08:37→20:58)
[2021-06-03] MEDS: Famotidine 20 MG TABLET PO SCH ×2 (08:38→20:59)
[2021-06-03] MEDS: Cholecalciferol (D-3) 1,000 UNIT (25MCG) TABLET PO SCH (08:39)
[2021-06-03] MEDS: Loratadine 10 MG TABLET PO SCH (08:39)
[2021-06-03] MEDS: Letrozole 2.5 MG TABLET PO SCH (08:40)
[2021-06-03] MEDS: lamoTRIgine 100 MG TABLET PO SCH ×2 (08:40→21:00)
[2021-06-03] MEDS: levETIRAcetam 250 MG TABLET PO SCH ×2 (08:40→20:59)
[2021-06-03] MEDS: polyethylene glycoL 3350 17 GM POWD.PACK PO SCH (08:41)
[2021-06-03] MEDS ORDERED: SUMAtriptan succinate 25 MG TABLET PO PRN (09:00)
[2021-06-03 09:11] LABS: Albumin 2.8 g/dL (3.5-5.7); Bilirubin,Total 0.4 mg/dL (0.3-1.0); Calcium 7.5 mg/dL (8.6-10.3); Globulin 2.7 g/dL (2.4-3.5); Magnesium 1.9 mg/dL (1.6-2.6); Potassium 3.7 mEq/L (3.5-5.1); Total Protein 5.5 g/dL (6.4-8.9)
[2021-06-03 10:06] LABS: Adenovirus Not Detected (Not Detect); Bordetella Pertussis Not Detected (Not Detect); Chlamydophila pneumoniae Not Detected (Not Detect); Coronavirus 229E Not Detected (Not Detect); Coronavirus HKU1 Not Detected (Not Detect); Coronavirus NL63 Not Detected (Not Detect); Coronavirus OC43 Not Detected (Not Detect); Human Metapneumovirus Not Detected (Not Detect); Human Rhinovirus/Enterovirus Not Detected (Not Detect); Influenza A Subtype 2009 H1 Not Detected (Not Detect); Influenza B Not Detected (Not Detect); Mycoplasma pneumoniae Not Detected (Not Detect); Parainfluenza Virus 1 Not Detected (Not Detect); Parainfluenza Virus 2 Not Detected (Not Detect); Parainfluenza Virus 3 Not Detected (Not Detect); Parainfluenza Virus 4 Not Detected (Not Detect); Respiratory Syncytial Virus Not Detected (Not Detect); SARS-CoV-2 Not Detected (Not Detect)
[2021-06-03] MEDS: Tiotropium 10 INH DOSE IH SCH (10:09)
[2021-06-03] MEDS: levoFLOXacin 750 MG/150 ML 750 MG/150 ML BAG IVPB SCH (12:04)
[2021-06-03] MEDS: *HR* Rivaroxaban 10 MG TABLET PO SCH (16:33)
[2021-06-03] MEDS: traZODone 50 MG TABLET PO SCH (20:59)
[2021-06-04] MEDS: *HR* OxyCODONE ER (12 HR) 10 MG TABLET PO SCH ×4 (00:08→23:46)
[2021-06-04 05:34] LABS: Hematocrit 20.3 % (35.3-44.9); Hemoglobin 6.2 g/dL (11.5-15.4); Mean Corpuscular HGB Conc 30.5 g/dL (31.6-35.5); Mean Corpuscular Hemoglobin 33.3 pg (28.0-33.3); Mean Corpuscular Volume 109.1 fL (83.0-100.0); Platelet Count 109 K/mcL (140-400); Red Blood Count 1.86 M/mcL (3.82-4.97); Red Cell Distribution Width 16.2 % (11.5-14.5); White Blood Count 5.4 K/mcL (4.3-11.1)
[2021-06-04 06:14] LABS: BUN/Creatinine Ratio 14 (6-26); Blood Urea Nitrogen 15 mg/dL (6-20); Calcium 7.7 mg/dL (8.6-10.3); Carbon Dioxide 21 mEq/L (23-29); Chloride 112 mEq/L (98-107); Glucose 99 mg/dL (70-105); Osmolality,Calculated 291 (280-300); Potassium 3.8 mEq/L (3.5-5.1); Sodium 140 mEq/L (136-145); eGFR For African Americans > 60 (> 60); eGFR For Non-African Americans 53 (> 60)
[2021-06-04] MEDS: Tiotropium 10 INH DOSE IH SCH (06:40)
[2021-06-04] MEDS: Topiramate 25 MG TABLET PO SCH ×2 (09:05→19:46)
[2021-06-04] MEDS: Vitamin E 200 UNIT (90MG) CAPSULE PO SCH ×2 (09:06→19:46)
[2021-06-04] MEDS: Aspirin Enteric Coated 81 MG Tablet PO SCH (09:06)
[2021-06-04] MEDS: Famotidine 20 MG TABLET PO SCH ×2 (09:07→19:48)
[2021-06-04] MEDS: polyethylene glycoL 3350 17 GM POWD.PACK PO SCH (09:07)
[2021-06-04] MEDS: lamoTRIgine 100 MG TABLET PO SCH ×2 (09:07→19:49)
[2021-06-04] MEDS: Cholecalciferol (D-3) 1,000 UNIT (25MCG) TABLET PO SCH (09:07)
[2021-06-04] MEDS: levETIRAcetam 250 MG TABLET PO SCH ×2 (09:07→19:49)
[2021-06-04] MEDS: Loratadine 10 MG TABLET PO SCH (09:07)
[2021-06-04] MEDS: Letrozole 2.5 MG TABLET PO SCH (09:07)
[2021-06-04] MEDS: levoFLOXacin 750 MG/150 ML 750 MG/150 ML BAG IVPB SCH (09:08)
[2021-06-04] MEDS ORDERED: Furosemide 20 MG/2 ML VIAL IVP ONE (11:59)
[2021-06-04] MEDS ORDERED: 0.9 % Sodium Chloride 250 ML IVC SCH (12:00)
[2021-06-04 12:19] LABS: Iron < 10 mcg/dL (50-170); Transferrin 147 mg/dL (203-362)
[2021-06-04 12:21] LABS: Folate 11.6 ng/mL (3.0-16.0)
[2021-06-04] MEDS: Benzonatate 100 MG CAPSULE PO PRN ×2 (15:05→23:46)
[2021-06-04] MEDS: *HR* Rivaroxaban 10 MG TABLET PO SCH (16:44)
[2021-06-04] MEDS: Iron Sucrose Complex 200 MG in 0.9 % Sodium Chloride 100 ML IVPB SCH (19:03)
[2021-06-04] MEDS: traZODone 50 MG TABLET PO SCH (20:21)
[2021-06-05 05:56] LABS: Basophils % 0.5 %; Eosinophils # 0.2 K/mcL (0.0-0.6); Eosinophils % 3.7 %; Hematocrit 24.2 % (35.3-44.9); Hemoglobin 7.6 g/dL (11.5-15.4); Immature Granulocytes % 0.7 % (0-4); Lymphocytes # 0.7 K/mcL (0.6-4.6); Lymphocytes % 11.8 %; Mean Corpuscular HGB Conc 31.4 g/dL (31.6-35.5); Mean Corpuscular Hemoglobin 32.6 pg (28.0-33.3); Mean Corpuscular Volume 103.9 fL (83.0-100.0); Mean Platelet Volume 8.9 fL (9.4-12.4); Monocytes # 0.4 K/mcL (0.0-1.3); Monocytes % 7.4 %; Neutrophils # 4.5 K/mcL (1.6-8.9); Platelet Count 124 K/mcL (140-400); Red Blood Count 2.33 M/mcL (3.82-4.97); Red Cell Distribution Width 18.6 % (11.5-14.5); Segmented Neutrophils % 75.9 %; White Blood Count 5.9 K/mcL (4.3-11.1)
[2021-06-05 06:19] LABS: Alanine Aminotransferase 6 Units/L (7-52); Albumin 2.8 g/dL (3.5-5.7); Alkaline Phosphatase 68 Units/L (34-104); Aspartate Amino Transferase 10 Units/L (13-39); BUN/Creatinine Ratio 13 (6-26); Bilirubin,Total 0.4 mg/dL (0.3-1.0); Blood Urea Nitrogen 14 mg/dL (6-20); Calcium 7.9 mg/dL (8.6-10.3); Carbon Dioxide 22 mEq/L (23-29); Chloride 110 mEq/L (98-107); Globulin 2.8 g/dL (2.4-3.5); Glucose 100 mg/dL (70-105); Magnesium 1.9 mg/dL (1.6-2.6); Osmolality,Calculated 289 (280-300); Sodium 139 mEq/L (136-145); Total Protein 5.6 g/dL (6.4-8.9); eGFR For African Americans > 60 (> 60); eGFR For Non-African Americans 52 (> 60)
[2021-06-05] MEDS: Tiotropium 10 INH DOSE IH SCH (07:27)
[2021-06-05] MEDS: levoFLOXacin 750 MG/150 ML 750 MG/150 ML BAG IVPB SCH (07:58)
[2021-06-05] MEDS: polyethylene glycoL 3350 17 GM POWD.PACK PO SCH (07:59)
[2021-06-05] MEDS: Topiramate 25 MG TABLET PO SCH ×2 (08:00→20:36)
[2021-06-05] MEDS: Vitamin E 200 UNIT (90MG) CAPSULE PO SCH ×2 (08:00→20:35)
[2021-06-05] MEDS: Cholecalciferol (D-3) 1,000 UNIT (25MCG) TABLET PO SCH (08:00)
[2021-06-05] MEDS: *HR* OxyCODONE ER (12 HR) 10 MG TABLET PO SCH ×3 (08:01→23:36)
[2021-06-05] MEDS: Aspirin Enteric Coated 81 MG Tablet PO SCH (08:01)
[2021-06-05] MEDS: Loratadine 10 MG TABLET PO SCH (08:01)
[2021-06-05] MEDS: lamoTRIgine 100 MG TABLET PO SCH ×2 (08:01→20:35)
[2021-06-05] MEDS: Famotidine 20 MG TABLET PO SCH ×2 (08:01→20:36)
[2021-06-05] MEDS: Letrozole 2.5 MG TABLET PO SCH (08:01)
[2021-06-05] MEDS: levETIRAcetam 250 MG TABLET PO SCH ×2 (08:02→20:35)
[2021-06-05] MEDS: Iron Sucrose Complex 200 MG in 0.9 % Sodium Chloride 100 ML IVPB SCH (09:45)
[2021-06-05] MEDS: *HR* Rivaroxaban 10 MG TABLET PO SCH (16:31)
[2021-06-05] MEDS: traZODone 50 MG TABLET PO SCH (20:35)
[2021-06-05] MEDS: Benzonatate 100 MG CAPSULE PO PRN (20:35)
[2021-06-06 05:02] LABS: Hematocrit 25.4 % (35.3-44.9); Hemoglobin 8.2 g/dL (11.5-15.4); Mean Corpuscular HGB Conc 32.3 g/dL (31.6-35.5); Mean Corpuscular Hemoglobin 33.5 pg (28.0-33.3); Mean Corpuscular Volume 103.7 fL (83.0-100.0); Mean Platelet Volume 9.4 fL (9.4-12.4); Platelet Count 144 K/mcL (140-400); Red Blood Count 2.45 M/mcL (3.82-4.97); Red Cell Distribution Width 18.1 % (11.5-14.5)
[2021-06-06 05:19] LABS: BUN/Creatinine Ratio 11 (6-26); Blood Urea Nitrogen 11 mg/dL (6-20); Calcium 8.2 mg/dL (8.6-10.3); Carbon Dioxide 19 mEq/L (23-29); Chloride 115 mEq/L (98-107); Glucose 88 mg/dL (70-105); Osmolality,Calculated 293 (280-300); Potassium 4.1 mEq/L (3.5-5.1); Sodium 142 mEq/L (136-145); eGFR For African Americans > 60 (> 60); eGFR For Non-African Americans 56 (> 60)
[2021-06-06] MEDS: Tiotropium 10 INH DOSE IH SCH (07:30)
[2021-06-06] MEDS: Aspirin Enteric Coated 81 MG Tablet PO SCH (08:22)
[2021-06-06] MEDS: Cholecalciferol (D-3) 1,000 UNIT (25MCG) TABLET PO SCH (08:22)
[2021-06-06] MEDS: Loratadine 10 MG TABLET PO SCH (08:22)
[2021-06-06] MEDS: polyethylene glycoL 3350 17 GM POWD.PACK PO SCH (08:22)
[2021-06-06] MEDS: levETIRAcetam 250 MG TABLET PO SCH (08:22)
[2021-06-06] MEDS: Letrozole 2.5 MG TABLET PO SCH (08:23)
[2021-06-06] MEDS: Famotidine 20 MG TABLET PO SCH (08:24)
[2021-06-06] MEDS: lamoTRIgine 100 MG TABLET PO SCH (08:25)
[2021-06-06] MEDS: *HR* OxyCODONE ER (12 HR) 10 MG TABLET PO SCH (08:25)
[2021-06-06] MEDS: Vitamin E 200 UNIT (90MG) CAPSULE PO SCH (08:26)
[2021-06-06] MEDS: Topiramate 25 MG TABLET PO SCH (08:26)
[2021-06-06] MEDS: Iron Sucrose Complex 200 MG in 0.9 % Sodium Chloride 100 ML IVPB SCH (08:27)
[2021-06-06] MEDS: levoFLOXacin 750 MG/150 ML 750 MG/150 ML BAG IVPB SCH (09:15)
[2021-06-06 11:22] VITALS: BP 101/58; PULSE 81; RESP 19; TEMP 98.2; O2SAT 94
== END 2021-06-06 15:55 | DRG 139 ==
LOC: INPGRE 12:01 → EMEROOGRE 12:01 → INPGRE 15:14
PROVIDERS: ADMIT Family Medicine; ATTEND Family Medicine